=== PATIENT | male | born 1995 | race Caucasian/White ===

== ENCOUNTER 2020-06-08 14:03 | Emergency (ER) | payer SELFPAY ==
--- NOTE | 2020-06-08 16:36 | ER Document Report ---
ED ENT - General Chief Complaint: Ear Pain Stated Complaint: LEFT EAR PAIN,SWELLING Time Seen by Provider: 06/08/20 15:43 Primary Care Provider: EDGAR VELIZ MD [NO LOCAL MD] - Follow up as needed Mode of Arrival: Ambulatory Information source: Patient Notes: Patient is a 23-year-old male comes emerged from complaint of left ear swelling. 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 He is here today because of the swelling and discomfort and feels like he might need to be drained. He denies any other injuries no loss of consciousness no nausea vomiting or diarrhea. Denies any neck pain or facial pain. TRAVEL OUTSIDE OF THE [place] IN LAST 30 DAYS: No - HPI Patient complains to provider of: Ear problem Onset: Other - 3 days Onset/Duration: Gradual, Persistent Quality of pain: Achy Severity: Moderate Pain Level: 3 Context: Injury Location of pain: Ears Associated symptoms: Ear pain, Ear trauma. denies: Ear drainage Similar symptoms previously: No Recently seen / treated by doctor: No - Related Data Allergies/Adverse Reactions: No Known Allergies Allergy (Unverified 06/08/20 15:40) Past Medical History - General Information source: Patient - Social History Smoking Status: Never Smoker Cigarette use (# per day): No Chew tobacco use (# tins/day): No Smoking Education Provided: No Frequency of alcohol use: None Drug Abuse: None Lives with: Family Family History: Reviewed & Not Pertinent Patient has homicidal ideation: No Review of Systems - Review of Systems Constitutional: No symptoms reported EENT: See HPI, Ear pain Cardiovascular: No symptoms reported Respiratory: No symptoms reported Gastrointestinal: No symptoms reported Genitourinary: No symptoms reported Male Genitourinary: No symptoms reported Musculoskeletal: No symptoms reported Skin: No symptoms reported Hematologic/Lymphatic: No symptoms reported Neurological/Psychological: No symptoms reported -: Yes All other systems reviewed and negative Physical Exam - Vital signs Vitals: Temp Pulse Resp BP Pulse Ox 98.0 F 74 19 153/89 H 98 06/08/20 14:16 06/08/20 14:16 06/08/20 14:16 06/08/20 14:16 06/08/20 14:16 Interpretation: Hypertensive - Notes Notes: PHYSICAL EXAMINATION: GENERAL: Well-appearing, well-nourished and in no acute distress. HEAD: Atraumatic, normocephalic. EYES: Pupils equal round and reactive to light, extraocular movements intact, sclera anicteric, conjunctiva are normal. ENT: Examination patient's external his left ear. Examination shows moderate amount of swelling with mild fluctuance noted between the tragus and the lobe external portion of the external canal there is moderate amount of fluctuance. There is no discoloration noted no sign of infection at this time. Patient presents with near cauliflower ear but it is moderately fluctuant as compared to most that are hard. NECK: Normal range of motion, supple without lymphadenopathy HEART: Regular rate and rhythm without murmurs NEUROLOGICAL: . Normal speech, normal gait. Normal sensory, motor exams PSYCH: Normal mood, normal affect. SKIN: Warm, Dry, normal turgor, no rashes or lesions noted. Course - Re-evaluation Re-evalutation: 06/08/20 19:55 I discussed the case with Dr. Pham who agreed that an I&D of the area would be appropriate. Also follow-up with ENT is very appropriate. - Vital Signs Vital signs: Temp Pulse Resp BP Pulse Ox 98.3 F 54 L 16 118/69 98 06/08/20 17:34 06/08/20 17:34 06/08/20 17:34 06/08/20 17:34 06/08/20 17:34 Procedures - Incision and Drainage Left Face Type: Simple Anesthetic type: 1% Lidocaine mL's of anesthetic: 1 Blade size: 11 I&D procedure: Betadine prep applied Incision Method: Incision made by scalpel Amount/type of drainage: 3ml blood Notes: 06/08/20 17:03 I anesthetized the area with 1 mL of 1% lidocaine without epi. I then used a #11 blade and put a less than 1 cm puncture with the 11 blade into the soft fluctuant area of the vestibule of the left ear. I immediately got a large return proximately 3 mL of blood. There was no clot. I did attempt to use a forceps to break up anything inside but did not get any further return. Pressure was applied by the patient for a long period of time trying to avoid refilling that area to form a cauliflower ear. Patient tolerated this procedure without problem. Discharge - Discharge Clinical Impression: Cauliflower ear, left ear Condition: Stable Disposition: HOME, SELF-CARE Instructions: Post Incision and Drainage Additional Instructions: I have opened up the pocket of blood that was in that left ear. It drained fairly well and went almost to 0 amount of swelling. Just keep apply pressure to the area so that he does not feel back up. I am giving the name of the orthopedist that you may contact to see if they can see you in follow-up. This is something that needs to be further follow-up with the swelling continues. Because return to ER for reevaluation. Forms: Elevated Blood Pressure, Smoking Cessation Education, Return to Work Referrals: EDGAR VELIZ MD [NO LOCAL MD] - Follow up as needed
[2020-06-08 17:39] VITALS: BP 118/69
== END 2020-06-08 17:38 | disposition home or self-care (01) ==
LOC: ER 14:03
DX: M95.12 Cauliflower ear, left ear (principal); H92.02 Otalgia, left ear
CPT/HCPCS: 99283